=== PATIENT | female | born 1965 | race Caucasian/White ===

== ENCOUNTER 2019-03-05 17:53 | Emergency (ER) | payer OTHER ==
[~2019-03-05] VITALS: Ht 157.5 cm; Wt 90.3 kg
[2019-03-05 17:58] VITALS: Ht 157.5 cm; Wt 90.3 kg
[2019-03-05 20:21] VITALS: BP 156/75
== END 2019-03-05 20:21 | disposition home or self-care (01) ==
LOC: ED 17:53
DX: S61.210A Laceration without foreign body of right index finger without damage to nail, initial encounter (principal); E11.9 Type 2 diabetes mellitus without complications; W26.0XXA Contact with knife, initial encounter; Y93.89 Activity, other specified; Y92.89 Other specified places as the place of occurrence of the external cause; Y99.8 Other external cause status
CPT/HCPCS: J1885